=== PATIENT | female | born 1960 | race Caucasian/White ===

== ENCOUNTER 2016-09-09 19:24 | Emergency (ER) | payer OTHER ==
[2016-09-09 19:36] VITALS: TEMP 98.5
[2016-09-09] MEDS ORDERED: ONDANSETRON 4 MG/2 ML VIAL IVPB ONE (19:43)
[2016-09-09] MEDS ORDERED: SODIUM CHLORIDE 1,000 ML IV ONE (19:43)
--- NOTE | 2016-09-09 19:44 | PDOC ---
History of Present Illness - History of Present Illness Initial Comments: 09/09/16 19:47 The patient is a 55 year old female with no significant past medical hx who presents to the ED complaining of abdominal pain since this afternoon. The patient states her pain is localized to the center of her abdomen. She notes the pain has been progressively worsening. She denies a bowel movement today and reports her last bowel movement was yesterday. She took Aleve with no relief of pain. She reports nausea and chills. She denies back pain, fever, dysuria, diarrhea, vomiting She denies chest pain, SOB PAST MEDICAL HISTORY: no significant history PAST SURGICAL HISTORY: no significant history FAMILY HISTORY: no pertinent history MEDICATIONS: reviewed ALLERGIES: As per nursing notes General:+Chills. No fever, weakness, no weight loss HEENT: No change in vision. No sore throat, No ear pain CardioVascular: No chest pain or shortness of breath Respiratory:No cough, or wheezing. Gastrointestinal: +Nausea, abdominal pain. No vomiting, diarrhea or constipation , No rectal bleeding Genitourinary: No dysuria, hematuria, or frequency Musculoskeletal: No joint or muscle pain or swelling Neurologic: No headache, vertigo, dizziness or loss of consciousness Psychiatric: nor depression Skin: No rashes or easy bruising Endocrine: no increased thirst or abnormal weight change Allergic: no skin or latex allergy All other systems reviewed and normal General: Well-nourished well-developed individual, no acute distress HEENT: Throat: Normal, tonsils normal, no erythema or exudate Neck: Supple, no meningeal signs, no lymphadenopathy Eyes::Pupils equal reactive and round, extraocular motion intact Chest: Nontender to palpation Cardiac: S1-S2 normal, regular rate and rhythm, no murmurs rubs or gallops Respiratory: Lungs clear to auscultation bilateral Abdomen: +Mild tenderness to palpation, no guarding or rebound. Soft, nondistended, normal bowel sounds, no back or flank tenderness. Extremities: Warm, dry, no cyanosis, clubbing, or edema Skin: No rashes Neuro: Alert and oriented x3, nonfocal exam, grossly intact, normal gait Psych: Normal mood and affect <Umu Murrell - Last Filed: 09/09/16 19:47> - General History Source: Patient Exam Limitations: No Limitations - History of Present Illness Initial Comments: 09/09/16 22:57 A portion of this note was documented by scribe services under my direction. I have reviewed the details of the note, within reason, and agree with the documentation. The case summary and management plan written by me. Assessment and plan: This is a 55-year-old female who comes in complaining of upper abdominal/midabdominal pain for approximately 6 or 7 hours. An EKG was done here in the emergency room that showed normal sinus rhythm at a rate 67 with some flattening of the T's in II and aVF and a flipped T inIII Laboratory work very work was all normal including a normal troponin. Based on patient's history EKG and age patient has a hard score of 2. Chest x-ray was done which was normal Flat and upright x-ray was done which showed marked increase in stool/ constipation. Patient had a repeat troponin done 3 hours after the first which was negative as well. This brings patient's overall risk of an acute coronary event within the next 6 months down to less than 1%. Patient discharged home with a diagnosis of constipation and was given a bottle of mag citrate. Patient was also told to get pqhf-[id number] enema and used as directed on the bottle tomorrow morning if no bowel movements. Patient does have a primary care doctor she can follow-up with. <Ilene Arguello I - Last Filed: 09/09/16 23:02> - General Chief Complaint: Pain Stated Complaint: abdominal pain Time Seen by Provider: 09/09/16 19:30 Past History <Umu Murrell - Last Filed: 09/09/16 19:47> - Past Medical History Other medical history: pt denies - Psycho/Social/Smoking Cessation Hx Anxiety: No Suicidal Ideation: No Smoking History: Current every day smoker Number of Cigarettes Smoked Daily: 20 Information on smoking cessation initiated: No Hx Alcohol Use: Yes (occasionally) Drug/Substance Use Hx: No Substance Use Type: None <Ilene Arguello I - Last Filed: 09/09/16 23:02> - Past Medical History Allergies/Adverse Reactions: Allergies Allergy/AdvReac Type Severity Reaction Status Date / Time No Known Allergies Allergy Verified 09/09/16 19:26 Home Medications: Ambulatory Orders NK [No Known Home Medication] 09/09/16 *Physical Exam - Vital Signs Last Vital Signs Temp Pulse Resp BP Pulse Ox 98.5 F 68 18 157/88 98 09/09/16 19:25 09/09/16 19:25 09/09/16 19:25 09/09/16 19:25 09/09/16 19:25 <Umu Murrell - Last Filed: 09/09/16 19:47> - Vital Signs Last Vital Signs Temp Pulse Resp BP Pulse Ox 98.5 F 68 18 157/88 98 09/09/16 19:25 09/09/16 19:25 09/09/16 19:25 09/09/16 19:25 09/09/16 19:25 <Ilene Arguello I - Last Filed: 09/09/16 23:02> Heart Score/ECG Review - History History: Slightly suspicious - Electrocardiogram EKG: Non specific repolarization disturbance - Age Age: 45-65 - Risk Factors Based on the list above the patient has:: No risk factors known - Troponin Troponin: </= normal limit - Score Heart Score - Total: 2 - ECG Intrepretation Rhythm: Regular Rhythm <Ilene Arguello I - Last Filed: 09/09/16 23:02> ED Treatment Course - LABORATORY CBC & Chemistry Diagram: 09/09/16 19:50 09/09/16 19:50 <Ilene Arguello I - Last Filed: 09/09/16 23:02> *DC/Admit/Observation/Transfer - Attestations Scribe Attestion: 09/09/16 19:47 Documentation prepared by Umu Murrell, acting as medical chief technician for Ilene Arguello MD/DO. <Umu Murrell - Last Filed: 09/09/16 19:47> - Discharge Dispostion Admit: No <Ilene Arguello I - Last Filed: 09/09/16 23:02> Diagnosis at time of Disposition: Constipation Qualifiers: Constipation type: unspecified constipation type Qualified Code(s): K59.00 - Constipation, unspecified - Discharge Dispostion Disposition: HOME Condition at time of disposition: Stable - Patient Instructions Printed Discharge Instructions: Constipation, Constipation (Alternative Therapy ) Additional Instructions: Drink the mag citrate tomorrow morning, if no further bowel movements by tomorrow afternoon purchase some [id number] laxatives such as milk of magnesia and take as directed on the bottle.. Addition to that you can also purchase a fleets enema at the pharmacy and take as directed on the box Increase your fluid intake. You should also follow up with your primary care doctor for a cardiac stress test. Return to the emergency department immediately with ANY new, persistent or worsening symptoms. Continue any medications as previously prescribed by your physician. You should follow up with your primary doctor as soon as possible regarding today's emergency department visit. . Please make sure your doctor reviews the results of your emergency evaluation. Thank you for coming to the Emergency Department today for your care. It was a pleasure to see you today. Please note that your evaluation is INCOMPLETE until you follow-up with your doctor.
[2016-09-09] MEDS ORDERED: ONDANSETRON 4 MG/2 ML VIAL ONE (19:52)
[2016-09-09 19:58] LABS: URINE APPEARANCE Clear; URINE BILIRUBIN Negative (NEGATIVE); URINE BLOOD Negative (NEGATIVE); URINE GLUCOSE (UA) Negative (NEGATIVE); URINE KETONE Negative (NEGATIVE); URINE NITRITE Negative (NEGATIVE); URINE PROTEIN Negative (NEGATIVE); URINE UROBILINOGEN 0.2 E.U/dl (0.2-1.0)
[2016-09-09 20:02] LABS: URINE COLOR YELLOW; URINE LEUK ESTERASE 1+ (NEGATIVE)
[2016-09-09 20:06] LABS: BASOPHIL 2.8 % (0-2.0); EOSINOPHIL 3.6 % (0-4.5); MCH 33.2 pg (25.7-33.7); MCHC 34.7 g/dl (32.0-36.0); MEAN CELL VOLUME 95.9 fl (80-96); MEAN PLT VOLUME 8.7 fl (7.5-11.1); NEUTROPHILS 52.3 % (42.8-82.8); PLATELET COUNT 262 K/MM3 (134-434)
[2016-09-09] MEDS ORDERED: NITROGLYCERIN 2% OINTMENT - 1GM PACKET TD ONE ×2 (20:08→20:12)
[2016-09-09] MEDS ORDERED: ASPIRIN 81 MG CHEWABLE TABLETS PO ONE (20:08)
[2016-09-09] MEDS ORDERED: ASPIRIN 81 MG CHEWABLE TABLETS ONE (20:11)
[2016-09-09 20:20] LABS: ALBUMIN 4.4 g/dl (3.5-5.0); ALK PHOS 71 U/L (32-92); ANION GAP 10 (8-16); BILIRUBIN,TOTAL 0.7 mg/dl (0.2-1.0); CO2 26 mmol/L (22-28); CPK(DFH) 61 IU/L (26-140); CREATININE 0.8 mg/dl (0.6-1.3); GLUCOSE,RANDOM 105 mg/dl (74-106); SGOT/AST 19 U/L (10-42); SGPT/ALT 23 U/L (10-40); TOT PROT 6.7 g/dl (6.4-8.3)
[2016-09-09 20:21] LABS: URINE BACTERIA FEW /hpf (NEGATIVE); URINE RBC 0-2 /hpf (0-3)
[2016-09-09 20:28] LABS: TROPONIN I (DFP) < 0.03 ng/ml (0.03-0.50)
[2016-09-09 20:53] VITALS: BP 111/89; PULSE 79
[2016-09-09] MEDS ORDERED: HYOSCYAMINE SULFATE 0.125 MG *ODT PO ONE (23:11)
[2016-09-09] MEDS ORDERED: HYOSCYAMINE SULFATE 0.125 MG *ODT ONE (23:13)
[2016-09-09 23:17] LABS: CPK(DFH) 62 IU/L (26-140); TROPONIN I (DFP) < 0.03 ng/ml (0.03-0.50)
[2016-09-09] MEDS ORDERED: MAGNESIUM CITRATE 300 ML BOTTLE PO ONE (23:20)
--- NOTE | 2016-09-10 12:30 | EKG ---
Test Reason : Blood Pressure : / mmHG Vent. Rate : 067 BPM Atrial Rate : 067 BPM P-R Int : 162 ms QRS Dur : 076 ms QT Int : 376 ms P-R-T Axes : -28 -23 -16 degrees QTc Int : 397 ms SINUS RHYTHM WITH SINUS ARRHYTHMIA NONSPECIFIC T WAVE ABNORMALITY NO PREVIOUS ECGS AVAILABLE Confirmed by DEBBY CALDERON MD ([id number]) on 09/10/2016 12:29:58 PM Referred By: MD CLANCY Confirmed By:DEBBY CALDERON MD
== END 2016-09-09 23:32 | disposition home or self-care (01) ==
LOC: FER 19:24
PROC: 3E0337Z Introduction of Electrolytic and Water Balance Substance into Peripheral Vein, Percutaneous Approach (ICD-10-PCS; principal; 2016-09-09)
DX: K59.00 Constipation, unspecified (principal); F17.210 Nicotine dependence, cigarettes, uncomplicated
CPT/HCPCS: 36415; 71020-TC; 74020-TC; 80053; 81003; 81015; 82550; 83690; 84484; 85025; 93005; 99282-25

== ENCOUNTER 2020-12-03 04:47 | Day surgery (SDC) | payer OTHER ==
[2020-11-30 12:48] VITALS: BMI 19.6
[2020-12-03 10:10] VITALS: TEMP 97.9
[2020-12-03 10:48] VITALS: PULSE 56
[2020-12-03 10:49] VITALS: BP 136/68
== END 2020-12-03 10:40 | disposition home or self-care (01) ==
LOC: JASU-ENDO 04:47
PROVIDERS: ATTEND Internal Medicine Gastroenterology
PROC: 0DBN8ZX Excision of Sigmoid Colon, Via Natural or Artificial Opening Endoscopic, Diagnostic (ICD-10-PCS; 2020-12-03)
PROC: 0DBP8ZX Excision of Rectum, Via Natural or Artificial Opening Endoscopic, Diagnostic (ICD-10-PCS; 2020-12-03)
PROC: 0DBK8ZX Excision of Ascending Colon, Via Natural or Artificial Opening Endoscopic, Diagnostic (ICD-10-PCS; principal; 2020-12-03 09:31)
DX: Z12.11 Encounter for screening for malignant neoplasm of colon (principal); D12.2 Benign neoplasm of ascending colon; K62.1 Rectal polyp; K63.5 Polyp of colon; K59.89 Other specified functional intestinal disorders; Z86.010 Personal history of colon polyps; Z80.0 Family history of malignant neoplasm of digestive organs
CPT/HCPCS: 88305-TC

== ENCOUNTER 2021-08-31 09:54 | Emergency (ER) | payer OTHER ==
[2021-08-31 10:06] VITALS: BP 161/64; PULSE 80; TEMP 97.6
[2021-08-31] MEDS ORDERED: ACETAMINOPHEN 1000 MG/100 ML BAG IVPB ONE (10:18)
[2021-08-31] MEDS ORDERED: SODIUM CHLORIDE 0.9% 500 ML INFUS.BAG IV ONE (10:18)
[2021-08-31] MEDS ORDERED: ONDANSETRON 4 MG/2 ML VIAL IVPUSH ONE (10:18)
[2021-08-31] MEDS ORDERED: FAMOTIDINE 20 MG/50 ML IVPB 20 MG/50 ML MG IVPB ONE (10:18)
[2021-08-31] MEDS ORDERED: ACETAMINOPHEN INJECTION 100 ML IVPB ONE (10:28)
[2021-08-31] MEDS ORDERED: ONDANSETRON 4 MG/2 ML VIAL ONE (10:28)
[2021-08-31 11:08] LABS: BASO % 0.7 % (0-2.0); EOS % 0.5 % (0-4.5); HEMATOCRIT 41.5 % (32.4-45.2); HEMOGLOBIN 14.4 GM/dL (10.7-15.3); LYMPH % 18.4 % (8-40); MCH 33.5 pg (25.7-33.7); MCHC 34.8 g/dl (32.0-36.0); MEAN CELL VOLUME 96.4 fl (80-96); MEAN PLT VOLUME 8.4 fl (7.5-11.1); MONO % 9.3 % (3.8-10.2); NEUT % 71.1 % (42.8-82.8); PLATELET COUNT 307 10^3/uL (134-434); RDW 12.4 % (11.6-15.6); WHITE BLOOD COUNT 8.6 K/mm3 (4.0-10.0)
[2021-08-31] MEDS ORDERED: FAMOTIDINE 10 MG/ML VIAL IVPB ONE (11:11)
[2021-08-31 11:15] LABS: INR 1.07 (0.83-1.09); PROTHROMBIN TIME (PATIENT) 12.3 SEC (9.7-13.0)
[2021-08-31 11:18] LABS: ACTIVATED PTT 29.2 SECONDS (25.2-36.5)
[2021-08-31 11:35] LABS: ALBUMIN 4.5 g/dl (3.4-5.0); BLOOD UREA NITROGEN 9.5 mg/dL (7-18); MAGNESIUM 2.2 mg/dL (1.8-2.4)
[2021-08-31 11:38] LABS: CREATININE 0.8 mg/dL (0.55-1.3)
[2021-08-31 11:40] LABS: BILIRUBIN,TOTAL 0.4 mg/dL (0.2-1); TOT PROT 7.6 g/dl (6.4-8.2)
[2021-08-31 11:49] LABS: URINE APPEARANCE CLEAR; URINE BILIRUBIN NEGATIVE (NEGATIVE); URINE COLOR YELLOW; URINE GLUCOSE (UA) NEGATIVE (NEGATIVE); URINE KETONE NEGATIVE (NEGATIVE); URINE LEUK ESTERASE NEGATIVE (NEGATIVE); URINE NITRITE NEGATIVE (NEGATIVE); URINE PROTEIN NEGATIVE (NEGATIVE); URINE UROBILINOGEN 0.2 mg/dL (0.2-1.0)
== END 2021-08-31 13:54 | disposition home or self-care (01) ==
LOC: JER 09:54
PROC: 3E0333Z Introduction of Anti-inflammatory into Peripheral Vein, Percutaneous Approach (ICD-10-PCS; principal; 2021-08-31)
PROC: 3E033GC Introduction of Other Therapeutic Substance into Peripheral Vein, Percutaneous Approach (ICD-10-PCS; 2021-08-31)
PROC: 3E033GC Introduction of Other Therapeutic Substance into Peripheral Vein, Percutaneous Approach (ICD-10-PCS; 2021-08-31)
PROC: 3E033GC Introduction of Other Therapeutic Substance into Peripheral Vein, Percutaneous Approach (ICD-10-PCS; 2021-08-31)
DX: R10.12 Left upper quadrant pain (principal)
CPT/HCPCS: 36415; 71046-TC-FY; 80053; 81003; 83605; 83690; 83735; 84484; 85025; 85610; 85730; 87086; 93005; 93010; 99285-25